=== PATIENT | female | born 1985 | race Caucasian/White ===

== ENCOUNTER 2024-03-04 11:38 | Emergency (ER) | payer MEDICAID ==
[~2024-03-04] VITALS: Ht 157.5 cm; Wt 69.9 kg
[2024-03-04 11:40] VITALS: BP 122/70; TEMP 98.3
[2024-03-04] MEDS ORDERED: SEMAGLUTIDE 2.4 MG/0.75 ML SQ (12:02)
[2024-03-04 12:06] VITALS: O2SAT 98
== END 2024-03-04 12:07 | disposition home or self-care (01) ==
LOC: ER 11:44 → EDBD 11:44 → ER 12:07
DX: R63.4 Abnormal weight loss (principal); J45.909 Unspecified asthma, uncomplicated; F31.9 Bipolar disorder, unspecified; Z76.0 Encounter for issue of repeat prescription; Z68.28 Body mass index [BMI] 28.0-28.9, adult